=== PATIENT | male | born 1975 | race Caucasian/White ===

== ENCOUNTER 2016-12-24 10:06 | Observation (INO) | payer OTHER ==
[~2016-12-24] VITALS: Ht 167.6 cm; Wt 86.4 kg
--- NOTE | 2016-12-26 08:33 | OR ---
ADMIT: 12/24/2016 RM/LOC: 626 [facility] MR#: [id number] 2620 [facility] [address] [place], [place] [address] DION[address] BLANK [address] [place] [address] Operative/Delivery Room Report SEX: M AGE: 41 : 1975 SURGERY DATE: 12/24/2016 SURGEON: Alonso Garcia MD ASSISTANTS: 1. ANETTE Burch. 2. Newton Suazo PA-C. PREOPERATIVE DIAGNOSES: Right hand injury with multiple complex lacerations over the dorsum of the hand measuring approximately 3.5 cm and then multiple lacerations kind of over the PIP of the long finger that is about 2 cm, the ring finger about 2 cm and volarly in the fourth finger in the palm that is about 0.5 cm and then in the second and third web spaces and multiple abrasions. He also had 4th metacarpal fracture open, extensor tendon laceration to the long finger and ring finger, the ring finger over the PIP joint, the long finger over the level of the metacarpal. Traumatic arthrotomies to the ring finger MPC joint and the long and ring finger PIP joints. 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 POSTOPERATIVE DIAGNOSES: Right hand injury with multiple complex lacerations over the dorsum of the hand measuring approximately 3.5 cm and then multiple lacerations kind of over the PIP of the long finger that is about 2 cm, the ring finger about 2 cm and volarly in the fourth finger in the palm that is about 0.5 cm and then in the second and third web spaces and multiple abrasions. He also had 4th metacarpal fracture open, extensor tendon laceration to the long finger and ring finger, the ring finger over the PIP joint, the long finger over the level of the metacarpal. Traumatic arthrotomies to the ring finger MPC joint and the long and ring finger PIP joints. 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 PROCEDURES PERFORMED: 1. Right 4th metacarpal open reduction and internal fixation. 2. Initial fracture care for open fracture with irrigation and debridement. 3. Irrigation and debridement of open traumatic arthrotomies to the 3rd MCP (metacarpophalangeal) joint, the 3rd and 4th PIP (proximal interphalangeal) joints. 4. Wound explorations. 5. Closures of all the wounds on the hand with arthrotomy repairs. 6. Extensor tendon repairs at the 3rd extensor and the 4th extensor tendons. TOURNIQUET TIME: 2 hours and 15 minutes. BLOOD LOSS: 50. COMPLICATIONS: None. IMPLANTS: Synthes, six hole plate and screws. INDICATION: This is a 41-year-old male, who was at work today. Got his hand ADMIT: 12/24/2016 RM/LOC: 626 [facility] MR#: [id number] [address] [place] [id number] [facility] [address] [place] [address] Operative/Delivery Room Report SEX: M AGE: 41 : 1975 caught between a couple of crates at work suffering multiple lacerations and fractures. He was brought to the ER. Was found on x-rays to have the injuries and the wounds were initially cleaned and dressed. He was given antibiotics. He was actually given in the ER Ancef and gentamicin. Then I evaluated him in the ER for surgical treatment for his traumatic wounds. He elected to proceed with that. So, we got him in as soon as were able. I did see him in the ED at around 1400 hours and I was not able to get an available operative theater until about 1800 hours, although I was present and available through that time. DESCRIPTION OF PROCEDURE: The patient was identified in the preoperative holding area. Written informed consent was confirmed, site was marked. Brought to the OR. After regional anesthesia was induced. MAC was induced and then we prepped and draped the right arm in the usual sterile fashion. Time-out was performed. Antibiotics were confirmed. Exam in the OR, brought the tourniquet up. Then started exploring the wounds. First explored the dorsal wound, irrigated this copiously with normal saline. Found again the extensor tendon of the 3rd was cut. There was a traumatic arthrotomy there in the MCP joint. Again this was irrigated and debrided. Explored the wounds in the 3rd and 4th PIP joints. The ring finger had sort of the neurovascular bundle violated as well as the collateral ligament. No cartilage damage in the joint although it was exposed and a little bit unstable. No significant tendon injury in the flexor or extensor of the 3rd digit. The PIP joint there was disruption there of about half of the central slip and then the lateral bands there. These were irrigated and debrided. The other lacerations were also irrigated and debrided. No other major structures were violated except for the 4th metacarpal which was fractured. I then exposed the 4th metacarpal fracture just by extending just a little bit of the skin flaps over the back of the hand. Once I got good visualization of that I cleaned, irrigated and cleaned out the hematoma. I was able to get the reduction and then placed a six hole plate. Initially drilled and then placed a screw. Unfortunately, had gotten the wrong drill and so the harbor pilot hole was not big enough. We got a screw that actually sheared off the head of the titanium screw there. We elected just to leave this there, repositioned the plate slightly again and then drilled and placed screws holding this in adequate fixation and presybeterian of length, alignment and rotation with good reduction. Once this was done, again we started with the extensor tendon repairs and used a 3-0 Ethibond suture for the 3rd extensor tendon. Again, I put modified Rubio and a horizontal stitch into the tendon itself and then a couple of stitches to reconstruct a little bit of the sagittal band that had been disrupted. This was again after examining and irrigating the capsule of the joint. The capsule was disrupted enough that I was not really able to get a good closure over the capsule itself. Once this was closed it seemed to track very nicely centrally, no subluxation, the extensor tendon was fully intact. Then into the ring finger PIP joint this had about 50-75% of the central slip disrupted there near its insertion. I closed this down with kind of a running stitch from proximal to distal, bringing some of the lateral bands up and over and that reapproximated very well. Then, put a running stitch in the lateral band ADMIT: 12/24/2016 RM/LOC: 626 [facility] MR#: [id number] [address] [id number] [address] BLANK [address] [place] [address] Operative/Delivery Room Report SEX: M AGE: 41 : 1975 with 3-0 Ethibond and then a 6-0 Prolene running stitch over the top of it for the lateral band more distally. This restored good tension and tenodesis of that extensor tendon. I then explored the ring finger mid laterally and was not able to find the ends of the digital nerve. At this point, I elected not to pursue that after searching and even bringing out the loop magnification and microscope magnification. Was not able to identified two good and elected at this point it was not vital for protective sensation to repair that, so we elected to move on. He had a viable finger and there was no need to search out or repair any vascular structures as they had completely clotted off at this point as well. I then again examined the joint defects as described above and no lesions or anything needed to be fixed. I irrigated those out very well. I then put another stitch kind of into some mid lateral structures in that ring finger trying to approximate where that collateral ligament would be coming from. I did not formally reconstructed it, just trying to get something done with the scar in there. I then closed all of the wounds with 3- 0 nylon suture and then placed into a bulky hand dressing with resting splint. Anesthesia was withdrawn, brought to the postoperative care unit and actually went upstairs. Postoperatively I will keep him here overnight for 24 hours of antibiotics at which point as long as all the fingers are pink and warm I will have him be discharged and then come back and see me in about 5-7 days for wound check and to initiate therapy. Alonso Garcia MD/ kaylieg JOB #: [id number] CC: Alonso Garcia, Attending Physician Alonso Garcia, Family Physician
[2016-12-27] MEDS ORDERED: OXY-CONTIN20 MG PO (11:47)
[2016-12-27] MEDS ORDERED: NORCO 5-325 TA1 EACH PO (11:47)
[2016-12-27] MEDS ORDERED: AUGMENTIN 250250 MG PO (11:48)
--- NOTE | 2016-12-28 12:16 | HP ---
ADMIT: 12/24/2016 RM/LOC: 626 [facility] MR#: [id number] 2620 [facility] [address] [place], [place] [address] DION[facility] BLANK [address] [place] [address] History and Physical SEX: M AGE: 41 : 1975 DATE OF SERVICE: CHIEF COMPLAINT: Right hand pain. HISTORY OF PRESENT ILLNESS: A 41-year-old male presents here with the family and interpreters. Injured his hand while at work. 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 States that he came over to the ER after this incident, had no other injuries with that accident that happened earlier today. The patient states, he has pretty excruciating pain with any movement of the fingers of the hand, but he can rest it comfortably if no one is moving it or if he is not moving it while its resting at his side. Past Medical history and past Surgical history, all negative as seen from the ER notes. PHYSICAL EXAMINATION: GENERAL: This is a pleasant 41-year-old male, resting in bed. His right hand on a table. Wound wrapped up. He is with family and collection development librarian is present. MUSCULOSKELETAL: The right extremity on physical exam has large lacerations on the dorsal aspect and volar aspect of his hand as well as on digits four, three, and two. The wound is open. The patient has numbness on his ring finger throughout. Has some light loss of sensation of the distal tips of the fingers two and three as well. There are no other open cuts or lacerations to all the distal hand. He has brisk capillary refill to all fingers. Other than tje previously stated distal part of the ring finger, he has sensation intacto to light touch throughout the hand. Any movement causes brief intense pain everywhere in the hand. There were no other abnormalities noted on the upper extremity on the right side. IMAGING: Three-view x-rays of the right hand do show fracture of the right 4th metacarpal, relatively transverse. No shortening and slight angulation ADMIT: 12/24/2016 RM/LOC: 626 [facility] MR#: [id number] [address] [facility] [address] [place], [place] [address] DION[facility] BLANK [address] [place] [address] History and Physical SEX: M AGE: 41 : 1975 seen, lateral. Soft-tissue damage also seen generalize along the fourth, third, and second metacarpal flanks areas. ASSESSMENT AND PLAN: Due to the fracture and open nature of this injury, we are going to surgically washout the hands and do a wound exploration, tendon repairs as needed and a fourth metacarpal fixation and other indicated procedures as we see fit when we get in there. Dr. Garcia talked with the family about this and we asked him if there are any questions or concerns. They understood the risks, benefits, and alternatives to treatments that we talked about. They still wanted to go ahead and proceed with the procedure. All the questions and concerns were answered at that time by the patient and the family members. ANETTE Burch / Alonso Garcia MD / jose JOB #: [id number] CC: Alonso Garcia, Attending Physician Alonso Garcia, Family Physician
--- NOTE | 2016-12-30 16:08 | ER ---
ADMIT: 12/24/2016 RM/LOC: ER [facility] MR#: [id number] [address]20 [facility] [address] [place], [place] [address] DIONICIO BLANK [address] [place] [address] Emergency Room Report SEX: M AGE: 41 : 1975 DATE: 12/24/2016 ADDENDUM: A 41-year-old male, coming in after getting his hand caught in a machine at work. He has avulsed skin on the dorsum of his right hand. He has fractured the 4th metacarpal. He also has a fracture at the base of the 3rd metacarpal. He also has severed several extensor tendons. I spoke with Dr. Garcia, he is in surgery, he will come in and see him after he is done. The patient was given 2 g of Ancef down here, Dr. Garcia' consultation. He has titrated pain medications. He is comfortable. CONDITION ON DISCHARGE AND ADMISSION: Fair. Cristino Sheffield MD/ jose JOB #: [id number] CC: Cristino Sheffield MD, Attending Physician
== END 2016-12-26 10:50 | disposition home or self-care (01) ==
LOC: ER 10:06 → 5MS 16:00 → 6PED 20:47
PROVIDERS: ADMIT Student in an Organized Health Care Education/Training Program
PROC: 0LQ70ZZ Repair Right Hand Tendon, Open Approach (ICD-10-PCS; principal; 2016-12-24)
PROC: 0PSP04Z Reposition Right Metacarpal with Internal Fixation Device, Open Approach (ICD-10-PCS; principal; 2016-12-24)
DX: S62.304B Unspecified fracture of fourth metacarpal bone, right hand, initial encounter for open fracture (principal); Z79.899 Other long term (current) drug therapy; X58.XXXA Exposure to other specified factors, initial encounter